=== PATIENT | male | born 2005 | race Caucasian/White ===

== ENCOUNTER 2023-12-11 12:41 | Outpatient (AMB) | payer OTHER, SELFPAY ==
--- NOTE | 2023-12-11 12:43 | AM.OFFWIN_ITS ---
Intake Vital Signs 12/11/23 12:47 Height 6 ft 1 in Weight 225 lb BMI 29.7 BP 98/64 Blood Pressure Location Lt brachial Position Sitting Respiration 13 Pulse 63 Pulse Source Pulse Oximeter Temp 97.8 F Temp Source Oral Pulse Oximetry (%) 97 Oxygen Delivery Method Simple Mask Intake Visit Reasons: Vomiting, headache Intake Note: Patient complaining of vomiting, diarrhea,headaches, eyes are hurting, and stuffy nose x 3 days. Allergies No Known Allergies Allergy (Verified 12/11/23 12:58) Medication List - Last Reconciled 12/11/23 by SALEEM Kearney- No Known Home Meds Do you need a note to return to daycare/school/sports/work: Yes HPI HPI Comments History of Present Illness Details 18 y/o M here today with chief complaint s of nausea vomiting and diarrhea. Reports that he was in his normal state of health until Friday when he developed sudden onset of vomiting associated with headache, runny nose pressure behind his eyes. The last time that he vomited was today at 07:00, the last bout of diarrhea was last night. Is able to tolerate a bland diet. When asked about urination he reports that the last time he urinated was on Friday He used ibuprofen NyQuil to help with his symptoms, reports that it did help a little bit with a headache In addition to the above symptoms he does report some mild sensitivity to light, abdomen feels crampy; reports mom sick with similar symptoms UTD on vaccines Denies recent travel, neck pain, fever, sore throat. Exam: Awake alert NAD, mildly ill appearing Neck FROM, no nuchal regidiity Sclera and conjunctiva mild injected, no drainage Nares with mucoid d/c, turbinates edematous, no sinus tenderness with palpation bilat TM intact and clear bilat MM dry, cracked pharynx WNL RRR LS CTAB Abd soft, mildly tender generally speaking w/o rebound, gaurding or rigidity, hyperactive bs x 4 Plan Viral swab obtained first then UA done to determine hydration status. SG 1.000 which is concerning if he hasnt voided since Friday He appears very dry today This was discussed w/ him and the plan is for ED eval and tx as he needs IV hydration. He will be going to [facility] via private car Advised to fu with PCP once discharged The viral swab was discarded as he will be going to the ED. Expect called. This note is constructed using voice recognition software. While every effort has been made to ensure accuracy in entertainment centre manager, still errors may have been included Sometimes, these errors may affect the content or meaning of the given sentence . Total time spent caring for the patient today was 40 minutes. This includes time spent before the visit reviewing the chart, time spent during the visit, and time spent after the visit on documentation Physical Exam Vital Signs: Last Vital Signs Temp 97.8 F 12/11/23 12:47 Pulse 63 12/11/23 12:47 Resp 13 12/11/23 12:47 BP 98/64 12/11/23 12:47 Pulse Ox 97 12/11/23 12:47 Oxygen Delivery Method Simple Mask 12/11/23 12:47 BMI result Body Mass Index 29.7 Results AMB Urinalysis, Automated UA Leukoctes 0 Taylor/uL Last Edit by Gisela Bazan MA on 12/11/23 13:19 UA Nitrite Negative Last Edit by Gisela Bazan MA on 12/11/23 13:19 UA Urobilinogen 3.5 mg/dL Last Edit by Gisela Bazan MA on 12/11/23 13:19 UA Protein 0 mg/dL Last Edit by Gisela Bazan MA on 12/11/23 13:19 UA pH 6.0 Last Edit by Gisela Bzaan MA on 12/11/23 13:19 UA Blood 0 Nakul/uL Last Edit by Gisela Bazan MA on 12/11/23 13:19 UA Specific [place] 1.000 Last Edit by Gisela Bazan MA on 12/11/23 13:1 9 UA Ketone Negative Last Edit by Gisela Bazan MA on 12/11/23 13:19 UA Bilirubin 0 mg/dL Last Edit by Gisela Bazan MA on 12/11/23 13:19 UA Glucose 0 mg/dL Last Edit by Gisela Bazan MA on 12/11/23 13:19 Assessment & Plan Assessment & Plan (1) Flu-like symptoms: Code(s): R68.89 - Other general symptoms and signs Plan: . (2) Combined abdominal pain, vomiting, and diarrhea: Code(s): R10.9 - Unspecified abdominal pain; R11.10 - Vomiting, unspecified; R19.7 - Diarrhea, unspecified Plan: . (3) Dehydration: Code(s): E86.0 - Dehydration Plan: . (4) Inappropriately low urine specific gravity: Code(s): R82.998 - Other abnormal findings in urine Plan: . Plan . Orders: Orders AMB Urinalysis Automated Today R10.9 - Unspecified abdominal pain, R11.10 - Vomiting, unspecified, R19.7 - Diarrhea, unspecified Coding Level of Care Code Est Pt Level 5 (77986) Diagnoses Flu-like symptoms R68.89 Combined abdominal pain, vomiting, and diarrhea R10.9; R11.10; R19.7 Dehydration E86.0 Inappropriately low urine specific gravity R82.998
[2023-12-11 12:47] VITALS: BP 98/64; PULSE 63; RESP 13; TEMP 36.6; O2SAT 97; BMI 29.7
== END 2023-12-11 13:20 | disposition home or self-care (01) ==
PROVIDERS: Visit Provider Nurse Practitioner Family
DX: R68.89 Other general symptoms and signs (principal); R10.9 Unspecified abdominal pain; R11.10 Vomiting, unspecified; R19.7 Diarrhea, unspecified; E86.0 Dehydration; R82.998 Other abnormal findings in urine

== ENCOUNTER → 2023-12-11 12:41 | Outpatient (BNVA) | payer OTHER, SELFPAY | DX: R68.89 Other general symptoms and signs (principal); R10.9 Unspecified abdominal pain; R11.10 Vomiting, unspecified; R19.7 Diarrhea, unspecified; E86.0 Dehydration; R82.998 Other abnormal findings in urine | CPT/HCPCS: 99212 ==